=== PATIENT | female | born 2000 | race Hispanic/Latino ===

== ENCOUNTER 2023-11-27 16:31 | Inpatient (IN) | payer SELFPAY ==
[~2023-11-27] VITALS: Ht 154.9 cm; Wt 81.2 kg
[2023-11-27 17:20] LABS: APPEARANCE,URINE CLEAR (CLEAR); BILIRUBIN,URINE NEGATIVE (NEGATIVE); COLOR,URINE YELLOW (YELLOW); GLUCOSE, URINE (UA) NEGATIVE (NEGATIVE); KETONES,URINE 5 mg/dL (NEGATIVE); LEUKOCYTE ESTERASE ,URINE 75 Leu/uL (NEGATIVE); NITRATE,URINE NEGATIVE (NEGATIVE); OCCULT BLOOD,URINE NEGATIVE (NEGATIVE); PROTEIN,URINE 50 mg/dL (NEGATIVE); UROBILINOGEN,URINE 0.2 mg/dL (0.2-1.0)
[2023-11-27 17:21] LABS: ADD UA MICROSCOPIC YES
[2023-11-27 17:23] LABS: BACTERIA,URINE RARE /HPF (None Seen); MUCUS,URINE RARE LPF (None Seen); SQUAMOUS EPITHELIAL CELL,UR FEW /HPF (0-2)
[2023-11-27 17:27] LABS: AMPHET/METH SCREEN,URINE NEGATIVE (NEGATIVE); BARBITURATE SCREEN, URINE NEGATIVE (NEGATIVE); BENZODIAZEPINES SCREEN,URINE NEGATIVE (NEGATIVE); CANNABINOID SCREEN,URINE NEGATIVE (NEGATIVE); COCAINE SCREEN,URINE NEGATIVE (NEGATIVE); OPIATE SCREEN,URINE NEGATIVE (NEGATIVE); PHENCYCLIDINE SCREEN,URINE NEGATIVE (NEGATIVE)
[2023-11-27] MEDS: LACTATED RINGERS 1000ML 1,000 ML IV SCH (17:50)
[2023-11-27 18:05] LABS: HEMATOCRIT 32.4 % (36-48); MEAN CORPUSCULAR HEMOGLOBIN 24.4 pg (27.0-33.0); MEAN CORPUSCULAR HGB CONC 31.5 g/dL (32.0-36.0); MEAN CORPUSCULAR VOLUME 77.5 fL (79-99); PLATELET COUNT (AUTO) 414 K/uL (130-400); RED BLOOD CELL COUNT(AUTO) 4.18 MIL/uL (4.00-5.50); RED CELL DISTRIBUTION WIDTH 14.6 % (11.0-15.5); WHITE BLOOD COUNT (AUTO) 10.3 K/uL (4.8-10.8)
[2023-11-27] MEDS: AMPICILLIN 2GM+NS 100ML 100 ML IV SCH (18:09)
[2023-11-27 18:44] LABS: HIV 1&2 ANTIBODY Non-Reactive (Negative); HIV-1 p24 Antigen Non-Reactive (Negative)
[2023-11-27] MEDS ORDERED: PROMETHAZINE HCL 25 MG/ML 1ML AMPULE IM PRN (19:00)
[2023-11-27] MEDS ORDERED: LACTATED RINGERS 500 ML 500 ML IV PRN (19:00)
[2023-11-27] MEDS ORDERED: MEPERIDINE-PF 50 MG/ML SYG IVP PRN (19:00)
[2023-11-27] MEDS ORDERED: ePHEDrine SULFate 50 MG/ML AMPULE IVP PRN (19:00)
[2023-11-27] MEDS ORDERED: NALoxone HCL 0.4 MG/1 ML ML IV PRN (19:00)
[2023-11-27] MEDS: AMPICILLIN 1GM+NS 50ML 50 ML IV SCH (22:10)
[2023-11-28] MEDS: LACTATED RINGERS 1000ML 1,000 ML IV PRN (06:19)
[2023-11-28] MEDS ORDERED: LIDOCAINE HCL-MPF 2% 10ML AMP IJ ONE ×2 (18:13→18:19)
[2023-11-28] MEDS ORDERED: LIDOCAINE 2%-EPI 1:200,000 20 ML VIAL IJ ONE (18:15)
[2023-11-28] MEDS ORDERED: morPHINE PF 100MG/10ML AMP IV ONE (18:18)
[2023-11-28] MEDS ORDERED: ondanSETRON 4MG INJ ONE (18:26)
[2023-11-28] MEDS ORDERED: ceFAZolin SODIUM 2 GM VIAL IVPB PRN (18:30)
[2023-11-28] MEDS ORDERED: CALDOLOR 800MG+NS 250ML 250 ML IV PRN (18:30)
[2023-11-28] MEDS ORDERED: MIDAZOLAM HCL 1 MG/ML 2ML VIAL ONE (19:23)
[2023-11-28] MEDS ORDERED: 0.9%NACL 10ML VIAL IVP PRN (20:00)
[2023-11-28] MEDS ORDERED: MEPERIDINE-PF 75 MG/ML SYG IM PRN (20:00)
[2023-11-28] MEDS ORDERED: PROMETHAZINE HCL 25 MG/ML 1ML AMPULE IM PRN (20:00)
[2023-11-28 21:50] VITALS: BP 135/78; PULSE 84; RESP 20; TEMP 98.1
[2023-11-29 00:04] VITALS: BP 120/59; PULSE 91; RESP 20; TEMP 98
[2023-11-29] MEDS: CALDOLOR 800MG+NS 250ML 250 ML IV SCH (03:30)
[2023-11-29] MEDS: DEXTROSE 5 %-0.45 % NACL 1,000 ML IV PRN (03:54)
[2023-11-29 03:59] VITALS: BP 122/57; PULSE 97; RESP 20; TEMP 98.9
[2023-11-29 07:25] LABS: MEAN CORPUSCULAR HEMOGLOBIN 24.5 pg (27.0-33.0); MEAN CORPUSCULAR HGB CONC 32.2 g/dL (32.0-36.0); MEAN CORPUSCULAR VOLUME 76.1 fL (79-99); RED BLOOD CELL COUNT(AUTO) 3.55 MIL/uL (4.00-5.50); RED CELL DISTRIBUTION WIDTH 14.6 % (11.0-15.5); WHITE BLOOD COUNT (AUTO) 8.8 K/uL (4.8-10.8)
[2023-11-29] MEDS ORDERED: LANOLIN 30GM OINTMENT TP PRN (07:30)
[2023-11-29] MEDS ORDERED: acetaMINOPHEN 500 MG TABLET PO PRN (07:30)
[2023-11-29] MEDS ORDERED: BisaCODYL 10 MG SUPP.RECT RC PRN (07:30)
[2023-11-29] MEDS ORDERED: HYDROcodone/APAP 5/325 1 TAB TABLET PO PRN (07:30)
[2023-11-29 07:45] VITALS: BP 127/63; PULSE 85; RESP 18; TEMP 98.1
[2023-11-29] MEDS: acetaMINOPHEN WITH coDEINE 1 TAB TAB PO PRN (07:46)
[2023-11-29] MEDS: doCUSate SODIUM 100 MG CAP PO SCH (08:59)
[2023-11-29] MEDS: SIMETHICONE 80 MG TAB.CHEW PO PRN (08:59)
[2023-11-29 11:30] VITALS: BP 134/83; PULSE 97; RESP 20; TEMP 98
[2023-11-29 15:45] VITALS: BP 131/87; PULSE 86; RESP 20; TEMP 97.8
[2023-11-29] MEDS: DIPH,PERTUSS(ACELL),TET VAC/PF 0.5 ML VIAL IM SCH (15:47)
[2023-11-29] MEDS: ibuPROFEN 800 MG TAB PO SCH (19:31)
[2023-11-29] MEDS ORDERED: ibuPROFEN 800 MG TAB PO SCH (20:00)
[2023-11-29 20:53] VITALS: BP 145/76; PULSE 93; RESP 17; TEMP 98.5
[2023-11-30] VITALS: BP 124/65; PULSE 84; RESP 18; TEMP 98.6
[2023-11-30 04:00] VITALS: BP 122/51; PULSE 86; RESP 17; TEMP 98
[2023-11-30 07:25] VITALS: BP 109/71; PULSE 88; RESP 18; TEMP 97.6
[2023-11-30 12:00] VITALS: BP 141/80; PULSE 101; RESP 18; TEMP 97.9
[2023-11-30 16:00] VITALS: BP 122/72; PULSE 87; RESP 18; TEMP 97.6
[2023-11-30] MEDS ORDERED: PREN1TAB80 PO (16:10)
[2023-12-02] MEDS ORDERED: ACET325T51 PO (23:38)
== END 2023-11-30 15:30 | disposition home or self-care (01) | DRG 787 ==
LOC: EDH 16:31 → LDH 16:32 → OBSVTOIN 16:32 → WSH 11-28 21:46
PROVIDERS: ADMIT Obstetrics & Gynecology; ATTEND Obstetrics & Gynecology
PROC: 10D00Z1 Extraction of Products of Conception, Low, Open Approach (ICD-10-PCS; principal; 2023-11-28 18:45)
PROC: 3E0234Z Introduction of Serum, Toxoid and Vaccine into Muscle, Percutaneous Approach (ICD-10-PCS; 2023-11-29)
DX: O62.2 Other uterine inertia (principal); O41.03X0 Oligohydramnios, third trimester, not applicable or unspecified; O99.214 Obesity complicating childbirth; Z37.0 Single live birth; Z3A.38 38 weeks gestation of pregnancy; Z23 Encounter for immunization
CPT/HCPCS: 36415; 59510; 76805; 80305; 81001; 85027; 86592; 86701; 86850; 86900; 86901; 87086; 87340; 87390; 90715; A4314; A4344; G0378; J0290; J1741; J2250; J2274; J2405; J2795; J3490; J7120; A4248; A4600; A4649; C1765; J0690

== ENCOUNTER 2023-12-02 20:08 | Emergency (ER) | payer MEDICAID ==
[~2023-12-02] VITALS: Ht 154.9 cm; Wt 81.6 kg
[~2023-12-02 20:08] MED LIST: PREN1TAB80 PO
--- NOTE | 2023-12-02 20:45 | NUR ---
SPOKE TO L AND D NURSE. PATIENT TO BE SEEN IN ER.
[2023-12-02 20:46] LABS: BASOPHILS # (AUTO) 0.01 K/uL (0.00-0.20); BASOPHILS % (AUTO) 0.1 % (0.0-5.0); EOSINOPHILS # (AUTO) 0.17 K/uL (0.00-0.70); EOSINOPHILS % (AUTO) 1.9 % (0.0-8.0); HEMATOCRIT 28.1 % (36-48); IMMATURE GRANULOCYTE ABSOLUTE 0.05 K/uL (0-1); LYMPHOCYTES # (AUTO) 1.8 K/uL (1.0-4.8); LYMPHOCYTES % (AUTO) 19.8 % (21.0-51.0); MEAN CORPUSCULAR HEMOGLOBIN 24.4 pg (27.0-33.0); MEAN CORPUSCULAR HGB CONC 31.3 g/dL (32.0-36.0); MEAN CORPUSCULAR VOLUME 77.8 fL (79-99); MONOCYTES # (AUTO) 0.7 K/uL (0.1-1.0); MONOCYTES % (AUTO) 7.1 % (3.0-13.0); NEUTROPHILS # (AUTO) 6.5 K/uL (1.8-7.7); NEUTROPHILS % (AUTO) 70.6 % (40.0-77.0); PLATELET COUNT (AUTO) 426 K/uL (130-400); RED BLOOD CELL COUNT(AUTO) 3.61 MIL/uL (4.00-5.50); WHITE BLOOD COUNT (AUTO) 9.2 K/uL (4.8-10.8)
[2023-12-02 20:57] VITALS: TEMP 98.2
[2023-12-02 21:03] LABS: ALBUMIN 2.5 g/dL (3.5-5.0); BILIRUBIN,TOTAL 0.4 mg/dL (0.2-1.0); CREATININE 0.7 mg/dL (0.5-1.0); POTASSIUM 3.3 mmol/L (3.5-5.1); TOTAL PROTEIN, SERUM 7.1 g/dL (6.0-8.3)
[2023-12-02] MEDS: 0.9%NACL 1000ML 1,000 ML IV ONE (21:06)
[2023-12-02] MEDS: acetaMINOPHEN 500 MG TABLET PO ONE (21:07)
--- NOTE | 2023-12-02 21:25 | HMCIMG ---
CT HEAD/BRAIN W/O CONTRAST HISTORY: Severe headaches COMPARISON: None TECHNIQUE: Multiple sequential axial images of the head were obtained from the base of the skull through vertex. Patient was not given contrast through intravenous route. FINDINGS: The ventricles and extraventricular CSF spaces are nondilated for patient's age. There is no midline shift, mass effect or herniation. No acute intracranial bleed is seen. Visualized portion of the paranasal sinuses are grossly within normal limits. IMPRESSION: 1. No acute intracranial bleed is seen. CT was performed with one or more following dose reduction techniques: automated exposure control, adjustment of the mA and kv according to patient's size, or use of a iterative reconstruction technique.
[2023-12-02] MEDS: DiphenhydrAMINE HCL 50 MG/ML VIAL IV ONE (21:58)
[2023-12-02] MEDS: ketOROlac 15MG/ML VIAL (15MG/ML) IV ONE (21:58)
[2023-12-02] MEDS: PROCHLORPERAZINE 10MG/2ML INJ IV ONE (21:58)
[2023-12-02 23:00] LABS: APPEARANCE,URINE CLEAR (CLEAR); BILIRUBIN,URINE NEGATIVE (NEGATIVE); COLOR,URINE YELLOW (YELLOW); GLUCOSE, URINE (UA) NEGATIVE (NEGATIVE); KETONES,URINE 150 mg/dL (NEGATIVE); LEUKOCYTE ESTERASE ,URINE 75 Leu/uL (NEGATIVE); NITRATE,URINE NEGATIVE (NEGATIVE); OCCULT BLOOD,URINE LARGE (NEGATIVE); PH,URINE 6.5 (5.0-8.0); PROTEIN,URINE 50 mg/dL (NEGATIVE)
[2023-12-02 23:16] LABS: ADD UA MICROSCOPIC YES
[2023-12-02 23:23] LABS: MUCUS,URINE FEW LPF (None Seen); SQUAMOUS EPITHELIAL CELL,UR MANY /HPF (0-2)
[2023-12-02] MEDS ORDERED: ACET-3859 PO (23:38)
--- NOTE | 2023-12-02 23:40 | ERN ---
General Chief Complaint: Headache Stated Complaint: HEADACHE Time Seen by MD: 20:12 Time Seen by Midlevel: 20:12 History of Present Illness Initial Comments Patient is a 23-year-old female presenting for evaluation of a diffuse headache that started earlier today and progressively got worse as the day progressed. Patient reports given approximately four days ago via . Patient denies having any complications. Baby was born full term. She does report having an epidural performed during her stay at this hospital. Currently she denies any nausea, vomiting, vision changes, numbness, weakness, or any other symptoms at this time. She has a attempted to take Tylenol at home with little to no relief. Patient states she did [place] have any care in the [place]. She states she was visiting a family member when her water broke and had to have an emergency . She does not have an OBGYN here in [facility] but was seen by Dr. Small while she was at the hospital. Allergies: Coded Allergies: No Known Allergies (Unverified Allergy, Unknown, 11/27/23) Home Meds Active Scripts Acetaminophen (Acetaminophen) 325 Mg Tablet, 325 MG PO Q6HPRN for 5 Days, #20 TAB Prov:SADE GRAFF 12/02/23 Reported Medications Vits W-Ca,Fe,FA(<1Mg) ( Vitamins) 27 Mg Iron-800 Mcg Tablet, 1 EACH PO DAILYBKFST, TAB 11/30/23 Past Medical History Past Medical History: No Pertinent History Past Surgical History: Female( History) : 1 Para: 0 Aborts: 0 ROS Dictation CONSTITUTIONAL: Negative except for HPI HEAD/FACE: Negative except for HPI EENT: Negative except for HPI RESPIRATORY: Negative except for HPI GASTROINTESTINAL/ABDOMINAL: Negative except for HPI GENITOURINARY: Negative except for HPI MUSCULOSKELETAL: Negative except for HPI INTEGUMENTARY: Negative except for HPI NEUROLOGICAL/PSYCH: Negative except for HPI HEMATOLOGIC/LYMPHATIC: Negative except for HPI All Systems Negative, Except as noted above. 13 point review of systems assessed and all negative except for above. Physical Exam Physical Exam Dictation Vital Signs reviewed General Appearance: Alert, oriented x 3, no acute distress, well developed, nourished. Head and Face: non-traumatic. Eyes: PERRL, pink conjunctivas, eyelid no trauma, anterior chamber with arcus senilis. Ears: Pinnas intact and no signs of trauma or erythema ear canals clear and no discharge TM no erythema Nose: No discharge, no bleeding. Oropharynx: Mouth normal, tongue pink, pharynx clear,no erythema, tonsils no exudates, no abscesses noted, mucous membrane moist Neck: Supple, non-tender, no thyromegaly, no masses, no JVD, no bruits Breast:Deferred Chest:No tenderness, no crepitus, no paradoxical movement, no retractions Lungs:Clear, well-ventilated, symmetric, no rales, no wheezing, no rhonchi, no stridor, good breath sounds bilaterally Heart: Regular rate, regular rhythm, no murmur, no gallops Vascular: no peripheral edema, Abdomen: Soft, positive bowel sounds, nondistended, no guarding, nontender, no rebound, no masses no hepatomegaly, no splenomegaly, no Coleman's sign, no hernias. Rectal: Deferred Genital: Deferred Neurological: Normal speech, motor function intact, sensory function intact Musculoskeletal: Neck nontender, full range of motion, back nontender, full range of motion, Extremities: nontender, full range of motion Skin: Color pink, dry, no turgor, no rash, no lacerations, no abrasions, no contusions. Lymphatic: Deferred Results Laboratory and Microbiology Lab and Micro Result Laboratory Tests Test 12/02/23 20:40 12/02/23 22:30 White Blood Count 9.2 K/uL (4.8-10.8) Red Blood Count 3.61 MIL/uL (4.00-5.50) L Hemoglobin 8.8 g/dL (12.0-16.0) L Hematocrit 28.1 % (36-48) L Mean Corpuscular Volume 77.8 fL (79-99) L Mean Corpuscular Hemoglobin 24.4 pg (27.0-33.0) L Mean Corpuscular Hemoglobin Concent 31.3 g/dL (32.0-36.0) L Red Cell Distribution Width 15.0 % (11.0-15.5) Platelet Count 426 K/uL (130-400) H Mean Platelet Volume 9.6 fL (7.5-10.5) Immature Granulocyte % (Auto) 0.5 % (0-1) Neutrophils (%) (Auto) 70.6 % (40.0-77.0) Lymphocytes (%) (Auto) 19.8 % (21.0-51.0) L Monocytes (%) (Auto) 7.1 % (3.0-13.0) Eosinophils (%) (Auto) 1.9 % (0.0-8.0) Basophils (%) (Auto) 0.1 % (0.0-5.0) Neutrophils # (Auto) 6.5 K/uL (1.8-7.7) Lymphocytes # (Auto) 1.8 K/uL (1.0-4.8) Monocytes # (Auto) 0.7 K/uL (0.1-1.0) Eosinophils # (Auto) 0.17 K/uL (0.00-0.70) Basophils # (Auto) 0.01 K/uL (0.00-0.20) Absolute Immature Granulocyte (auto 0.05 K/uL (0-1) Nucleated Red Blood Cells 0.0 % (0.0-0.19) Sodium Level 142 mmol/L (136-145) Potassium Level 3.3 mmol/L (3.5-5.1) L Chloride Level 106 mmol/L (101-111) Carbon Dioxide Level 23 mmol/L (21-32) Blood Urea Nitrogen 9 mg/dL (7-18) Creatinine 0.7 mg/dL (0.5-1.0) Glomerular Filtration Rate Calc 125 mL/min (>90) Random Glucose 82 mg/dL (70-105) Total Calcium 8.9 mg/dL (8.5-10.1) Magnesium Level 2.00 mg/dL (1.80-2.40) Total Bilirubin 0.4 mg/dL (0.2-1.0) Aspartate Amino Transf (AST/SGOT) 65 U/L (10-37) H Alanine Aminotransferase (ALT/SGPT) 51 U/L (12-78) Alkaline Phosphatase 153 U/L (50-136) H Total Protein 7.1 g/dL (6.0-8.3) Albumin 2.5 g/dL (3.5-5.0) L Serum Test, Qualitative POSITIVE (NEGATIVE) H Urine Color YELLOW (YELLOW) Urine Appearance CLEAR (CLEAR) Urine pH 6.5 (5.0-8.0) Urine Specific [place] 1.033 (1.001-1.031) Urine Protein 50 mg/dL (NEGATIVE) H Urine Glucose (UA) NEGATIVE mg/dL (NEGATIVE) Urine Ketones 150 mg/dL (NEGATIVE) H Urine Occult Blood LARGE (NEGATIVE) H Urine Nitrate NEGATIVE (NEGATIVE) Urine Bilirubin NEGATIVE mg/dL (NEGATIVE) Urine Urobilinogen 2.0 mg/dL (0.2-1.0) H Urine Leukocyte Esterase 75 Lisbet/uL (NEGATIVE) H Urine RBC 11-25 /HPF (0-1) H Urine WBC 11-25 /HPF (0-1) H Urine Squamous Epithelial Cells MANY /HPF (0-2) Urine Bacteria None /HPF (None Seen) Labs Reviewed?: Yes MDM MDM: Patient is a 23-year-old female presenting for evaluation of a diffuse headache that started earlier today and progressively got worse as the day progressed. Patient reports given approximately four days ago via C- section. Patient denies having any complications. Baby was born full term. She does report having an epidural performed during her stay at this hospital. Currently she denies any nausea, vomiting, vision changes, numbness, weakness, or any other symptoms at this time. She has a attempted to take Tylenol at home with little to no relief. Patient states she did not have [place] care in [place]. She states she was visiting a family member when her water broke and had to have an emergency . She does not have an OBGYN here in [facility] but was seen by Dr. Small while she was at the hospital. On physical examination patient is in no acute distress. Her neurological examination is unremarkable. Her pupils are equal round and reactive to light. She has a GCS of 15. It appears her headache is positional. She specifically denies any falling or direct injury to her head. No episodes of emesis or altered mental status has been reported. Her initial blood pressure is 161/92. She was given a g of Tylenol and a CT scan of the head was ordered to rule out an intracranial bleed. Her CT scan is negative for any intracranial process. Her CBC shows no leukocytosis with a normal white blood cell count. Her hemoglobin is 8.8 which is unchanged from her previous hemoglobin. Her plat elets are 426. Her AST is slightly elevated at 65. Her ALT is normal. Her alk-phos is slightly elevated at 158. Her urine appears to be contaminated since they are many squamous epithelium. No bacteria seen. There is mild elevation in protein however on repeat evaluation patient reports feeling significantly improved after receiving Compazine, Benadryl, and Toradol. She states her headache have completely resolved. She was able to ambulate to the restroom with no difficulty. She is ambulatory without assistance with a normal gait. Her repeat examination is unremarkable. Her neurological examination is unremarkable. Her blood pressure has been in the 130s 140s while in the ER. Her latest blood pressure was 136/79. Both patient and were advised that she needs to follow up with her OBGYN within the next five days. Both patient and are agreeable with this plan and they are comfortable with plan for discharge. All questions answered. Differential diagnosis: There are no social concerns with this patient. Prescription drug management Prescriptions will include: Tylenol Medical management and examination interpretation discussions were had by me with other qualified healthcare professionals as indicated for the patient's care. ED Course Orders Procedure Category Date Status Time Cbc With Differential LAB 12/02/23 Complete 20:27 Comprehensive LAB 12/02/23 Complete Metabolic Panel 20:27 Urinalysis Profile LAB 12/02/23 Complete 20:27 Ct Head/Brain W/O CT 12/02/23 Resulted Contrast 20:27 Magnesium LAB 12/02/23 Complete 20:27 0.9%Nacl 1000ml (Ns PHA 12/02/23 Complete 1000ml) 20:30 Acetaminophen 500mg PHA 12/02/23 Complete Tab (Tylenol 500mg T 20:30 Testing, LAB 12/02/23 Complete Serum Hcg 20:38 Prochlorperazine PHA 12/02/23 Complete 10mg/2ml Inj 22:00 Diphenhydramine Hcl PHA 12/02/23 Complete (Benadryl Inj) 22:00 Ketorolac PHA 12/02/23 Complete Tromethamine 15mg/Ml 22:00 Culture Urine RADHA 12/02/23 In Process 23:16 Current Medications Medications (Trade) Dose Ordered Sig/Syeda Route PRN Reason Start Time Stop Time Status Last Admin Dose Admin Acetaminophen (TYLenol 500MG TAB) 1,000 mg ONCE ONCE PO 12/02/23 20:30 12/02/23 20:31 DC 12/02/23 21:07 Diphenhydramine HCl (BENAdryl INJ) 25 mg ONCE ONCE IV 12/02/23 22:00 12/02/23 22:02 DC 12/02/23 21:58 Ketorolac Tromethamine (toRADol) 15 mg ONCE ONCE IV 12/02/23 22:00 12/02/23 22:02 DC 12/02/23 21:58 Prochlorperazine Edisylate (Compazine 10mg/ 2ml Inj) 10 mg ONCE ONCE IV 12/02/23 22:00 12/02/23 22:02 DC 12/02/23 21:58 Sodium Chloride 1,000 ml @ 0 mls/hr ONCE ONCE IV 12/02/23 20:30 12/02/23 20:31 DC 12/02/23 21:06 Vital Signs Date Time Temp Pulse Resp B/P (MAP) Pulse Ox O2 Delivery O2 Flow Rate FiO2 12/02/23 23:56 62 16 136/79 97 Room Air* 0 12/02/23 23:09 68 14 147/77 98 Room Air* 0 12/02/23 20:57 98.2 68 14 136/89 98 Room Air* 0 12/02/23 20:11 98.8 80 20 161/92 99 Room Air 0 [place] [id number] IMAGING REPORT Signed PATIENT: KYLE WILSON MR#: [id number] : 2000 SEX: F AGE: 23 LOCATION: [facility] ORDER 30 STATUS: REG REPORT#: [id number] SERVICE 26 REASON: severe headache w/hypertension x4 days ORDERING PHYSICIAN: SADE GRAFF PROCEDURE: HEAD WO - CT HEAD/BRAIN W/O CONTRAST CT HEAD/BRAIN W/O CONTRAST HISTORY: Severe headaches COMPARISON: None TECHNIQUE: Multiple sequential axial images of the head were obtained from the base of the skull through vertex. Patient was not given contrast through intravenous route. FINDINGS: The ventricles and extraventricular CSF spaces are nondilated for patient's age. There is no midline shift, mass effect or herniation. No acute intracranial bleed is seen. Visualized portion of the paranasal sinuses are grossly within normal limits. IMPRESSION: 1. No acute intracranial bleed is seen. CT was performed with one or more following dose reduction techniques: automated exposure control, adjustment of the mA and kv according to patient's size, or use of a iterative reconstruction technique. DICTATED BY: ARVIND RAMIREZ MD DATE: 12/02/232121 ELECTRONICALLY SIGNED BY: ARVIND RAMIREZ MD DATE: 12/02/232124 DX & DISP Disposition: Discharge Departure Impression: Primary Impression: headache Condition: Stable Scripts Acetaminophen (Acetaminophen) 325 Mg Tablet 325 MG PO Q6HPRN for 5 Days, #20 TAB Prov: SADE GRAFF 12/02/23 Additional Instructions: You will need to see an OBGYN for outpatient evaluation. You may take Tylenol for a headache. Return to the ER for any new or worsening symptoms Referrals: SELF,REFERRAL (PCP) ALANA SMALL MD Time of Disposition: 23:36 I have reviewed the case, and I agree with, Diagnosis and Plan I performed the substantive portion of the visit. I have reviewed and personally made and approve the management plan that is documented in the note by myself or the [facility]NA. I acknowledge for responsibility for the patient's management plan. SADE GRAFF Dec 02, 2023 23:40 CHICA MCNULTY DO Dec 03, 2023 03:17
[2023-12-02 23:56] VITALS: BP 136/79; PULSE 62; RESP 16; O2SAT 97
== END 2023-12-03 00:25 | disposition home or self-care (01) ==
LOC: EDH 20:08
DX: O90.89 Other complications of the puerperium, not elsewhere classified (principal); G44.89 Other headache syndrome; Z79.899 Other long term (current) drug therapy; Z98.890 Other specified postprocedural states
CPT/HCPCS: 99285; 96374; 70450; 96375; 96361; 83735; 80053; 84703; 85025; 87086; 81001; 36415; J1200; J7030; J0780; J1885